=== PATIENT | female | born 1960 | race Caucasian/White ===

== ENCOUNTER 2017-12-30 23:00 | Emergency (ER) | payer BC, OTHER ==
[2017-12-30 23:06] VITALS: BP 148/76; PULSE 73; TEMP 98.4; BMI 22.4
--- NOTE | 2017-12-31 00:05 | PDOC ---
History of Present Illness - General Chief Complaint: Lightheaded Stated Complaint: DIZZY, NAUSEA ,CP, ABD PAIN Time Seen by Provider: 12/30/17 23:16 - History of Present Illness Initial Comments: This 57-year-old woman presents with 1 day history of epigastric pain radiating to her left flank/left periscapular area. She has had mild nausea without vomiting. Patient had lightheadedness and mild shortness of breath earlier but denies these now. She has not had fever/chills. She states that it feels similar to the pain that she experienced when she had acute pancreatitis when she was approximately 20 years ago. No chest pain/palpitations/ diaphoresis noted. She states that she had upper abdominal pain approximately year ago and had endoscopy which was reportedly negative for acute abnormalities Past History - Past Medical History Allergies/Adverse Reactions: Allergies Allergy/AdvReac Type Severity Reaction Status Date / Time hydrocodone AdvReac Intermediate Vomiting Verified 05/18/15 14:54 oxycodone AdvReac Intermediate Vomiting Verified 05/18/15 14:52 tramadol AdvReac Intermediate Vomiting Verified 05/18/15 14:54 Home Medications: Ambulatory Orders Multivitamins [Multivit ([facility] Form[facility])] 1 tab PO DAILY 05/18/15 Pantoprazole Sodium [Protonix -] 40 mg PO DAILY #10 tablet.ec 12/31/17 Anemia: No Asthma: No Cancer: No Cardiac Disorders: No CVA: No COPD: No CHF: No Dementia: No Diabetes: No GI Disorders: Yes (GERD/CONSTIPATION) Disorders: No HTN: No Hypercholesterolemia: No Liver Disease: No Seizures: No Thyroid Disease: No - Surgical History Abdominal Surgery: Yes (UMBILICAL HERNIA 1967) Appendectomy: Yes (1974) Cardiac Surgery: No Cholecystectomy: No Lung Surgery: No Neurologic Surgery: No Orthopedic Surgery: No - Suicide/Smoking/Psychosocial Hx Smoking History: Never smoked Have you smoked in the past 12 months: No Number of Cigarettes Smoked Daily: 0 Information on smoking cessation initiated: No Hx Alcohol Use: No Drug/Substance Use Hx: No Substance Use Type: None Hx Substance Use Treatment: No Review of Systems - Review of Systems Able to Perform ROS?: Yes Comments:: 12 point review of systems is negative except for what is noted in the history of present illness *Physical Exam - Vital Signs Last Vital Signs Temp Pulse Resp BP Pulse Ox 98.4 F 73 14 148/76 100 12/30/17 23:02 12/30/17 23:02 12/30/17 23:02 12/30/17 23:02 12/30/17 23:02 - Physical Exam Comments: GENERAL: Adult female, alert and oriented 3, in mild distress secondary to abdominal pain HEAD: Normal with no signs of trauma. EYES: PERRLA, EOMI, sclera anicteric, conjunctiva clear. ENT: Ears normal, nares patent, oropharynx clear without exudates. Dry mucous membranes. NECK: Normal range of motion, supple without lymphadenopathy, JVD, or masses. LUNGS: Breath sounds equal, clear to auscultation bilaterally. No wheezes, and no crackles. HEART:Regular rate and rhythm, normal S1 and S2 without murmur, rub or gallop. ABDOMEN:.normal bowel sounds mild epigastric tenderness No guarding or rebound.No masses No distention. EXTREMITIES: Normal range of motion, no edema. No clubbing or cyanosis. No erythema, or tenderness. NEUROLOGICAL: Cranial nerves II through XII grossly intact. Normal speech. No focal neurological deficits. MUSCULOSKELETAL: Back non-tender to palpation, no CVA tenderness SKIN: Warm, Dry, normal turgor, no rashes or lesions noted. ED Treatment Course - LABORATORY CBC & Chemistry Diagram: 12/31/17 00:15 12/31/17 00:15 Medical Decision Making - Medical Decision Making Patient received a liter normal saline IV along with Toradol 30 mg IV and 4 mg of Zofran IV. Patient reports significant relief in her symptoms after above medications. Repeat examination reveals no further epigastric tenderness. Laboratory evaluation essentially negative with normal CBC; lipase is normal as well as LFTs. BUN is 25 with creatinine of 0.7. Patient was discharged with plan to follow up with her applied mathematician, Dr. Perez within 1 week. Prescription for Protonix 40 mg daily sent to patient's pharmacy. *DC/Admit/Observation/Transfer Diagnosis at time of Disposition: Intermittent upper abdominal pain - Discharge Dispostion Disposition: HOME Condition at time of disposition: Stable - Prescriptions Prescriptions: Pantoprazole Sodium [Protonix -] 40 mg PO DAILY #10 tablet.ec - Referrals Referrals: Albert Palafox MD [Primary Care Provider] - Dominic Perez MD [Staff Physician] - - Patient Instructions Printed Discharge Instructions: DI for Epigastric Pain Additional Instructions: Drink plenty of water Protonix 40 mg daily No work tomorrow Return to ER if you have worsening pain/vomiting/fever Call Dr. Perez tomorrow to arrange follow-up within 1 week - Post Discharge Activity Forms/Work/School Notes: Back to Work
[2017-12-31] MEDS ORDERED: SODIUM CHLORIDE 1,000 ML IV STA (00:27)
[2017-12-31] MEDS ORDERED: ONDANSETRON 4 MG/2 ML VIAL IVPUSH ONE (00:27)
[2017-12-31] MEDS ORDERED: KETOROLAC TROMETHAMINE 30 MG/1 ML VIAL ONE (00:39)
[2017-12-31 00:49] LABS: BASO % 0.6 % (0-2.0); EOS % 2.8 % (0-4.5); HEMATOCRIT 35.2 % (32.4-45.2); HEMOGLOBIN 12.2 GM/dL (10.7-15.3); LYMPH % 33.7 % (8-40); MCH 29.7 pg (25.7-33.7); MCHC 34.6 g/dl (32.0-36.0); MEAN CELL VOLUME 85.8 fl (80-96); MONO % 6.8 % (3.8-10.2); NEUT % 56.1 % (42.8-82.8); PLATELET COUNT 262 K/MM3 (134-434); WHITE BLOOD COUNT 5.7 K/mm3 (4.0-10.0)
[2017-12-31 02:04] LABS: ALBUMIN 3.9 g/dl (3.5-5.0); ANION GAP 9 (8-16); BLOOD UREA NITROGEN 25 mg/dl (7-18); CALCIUM 8.7 mg/dl (8.4-10.2); CHLORIDE 107 mmol/L (98-107); CO2 27 mmol/L (22-28); CREATININE 0.7 mg/dl (0.6-1.3); GLUCOSE,RANDOM 102 mg/dl (74-106); POTASSIUM 3.9 mmol/L (3.5-5.1); SODIUM 143 mmol/L (136-145); TOT PROT 6.6 g/dl (6.4-8.3)
[2017-12-31 02:05] LABS: ALK PHOS 75 U/L (32-92); BILIRUBIN,TOTAL 0.3 mg/dl (0.2-1.0); SGOT/AST 17 U/L (10-42); SGPT/ALT 17 U/L (10-40)
[2017-12-31] MEDS ORDERED: PANTOPRAZOLE 40 MG TABLET (FP) PO ONE (02:35)
[2017-12-31] MEDS ORDERED: PANTOPRAZOLE 40 MG TABLET (FP) ONE (02:40)
--- NOTE | 2017-12-31 14:13 | EKG ---
Test Reason : Blood Pressure : / mmHG Vent. Rate : 060 BPM Atrial Rate : 060 BPM P-R Int : 190 ms QRS Dur : 106 ms QT Int : 410 ms P-R-T Axes : 040 060 081 degrees QTc Int : 410 ms NORMAL SINUS RHYTHM NORMAL ECG WHEN COMPARED WITH ECG OF 13-JAN-2003 18:08, NO SIGNIFICANT CHANGE WAS FOUND Confirmed by XOCHITL DOWNING MD ([id number]) on 12/31/2017 2:13:22 PM Referred By: MD GILBERT Confirmed By:XOCHITL DOWNING MD
== END 2017-12-31 02:42 | disposition home or self-care (01) ==
LOC: FER 23:00
PROC: 3E033GC Introduction of Other Therapeutic Substance into Peripheral Vein, Percutaneous Approach (ICD-10-PCS; principal; 2017-12-30)
PROC: 3E0337Z Introduction of Electrolytic and Water Balance Substance into Peripheral Vein, Percutaneous Approach (ICD-10-PCS; 2017-12-30)
DX: R10.10 Upper abdominal pain, unspecified (principal)
CPT/HCPCS: 36415; 80053; 82550; 83690; 84484; 85025; 93005; 99284-25; J7030